=== PATIENT | male | born 1945 | race Caucasian/White ===

== ENCOUNTER → 2016-06-01 | Outpatient (CLI) | payer MEDICARE ==
[~2016-06-01] MED LIST: DIPHENHYDRAMINE 50 MG/ML, 1ML ONE; KETOROLAC 30 MG/1 ML ONE; PROCHLORPERAZINE 5 MG/ML, 2ML ONE
== END | disposition home or self-care (01) ==
LOC: CVU 12:25
PROVIDERS: ATTEND Orthopaedic Surgery
DX: M79.605 Pain in left leg (principal); M54.5 Low back pain; M79.604 Pain in right leg; M25.552 Pain in left hip; M25.551 Pain in right hip; I10 Essential (primary) hypertension; E11.9 Type 2 diabetes mellitus without complications; E78.5 Hyperlipidemia, unspecified; Z87.891 Personal history of nicotine dependence; Z86.79 Personal history of other diseases of the circulatory system; Z95.1 Presence of aortocoronary bypass graft
CPT/HCPCS: 93306; 93922; 93926

== ENCOUNTER → 2016-09-14 | Outpatient (CLI) | payer MEDICARE ==
[~2016-09-14] MED LIST changes: +AMLO5TAB2 PO; +ATEN100T PO; +CELE100C PO; -DIPHENHYDRAMINE 50 MG/ML, 1ML ONE; +FINA5TAB4 PO; +GABA300C10 PO; +HYDR25TA6 PO; -KETOROLAC 30 MG/1 ML ONE; +PRAV40TA2 PO; -PROCHLORPERAZINE 5 MG/ML, 2ML ONE; +TAMS0.4C2 PO; +TRAM50TA2 PO
[2016-09-14 10:22] LABS: BLOOD UREA NITROGEN 8 mg/dL (7-18)
[2016-09-14 10:28] LABS: ASPARTATE AMINO TRANSFERASE 39 U/L (15-37)
== END | disposition home or self-care (01) ==
LOC: STAR 08:47
PROVIDERS: ATTEND Orthopaedic Surgery
DX: Z01.818 Encounter for other preprocedural examination (principal); M48.06 Spinal stenosis, lumbar region
CPT/HCPCS: 36415; 71020; 80053; 81003; 82306; 85025; 85610; 85730; 93005

== ENCOUNTER 2016-09-28 08:27 | Inpatient (IN) | payer MEDICARE ==
[2016-09-14 09:53] VITALS: BP 152/79
[~2016-09-28] VITALS: Ht 180.3 cm; Wt 98.5 kg
[~2016-09-28 08:27] MED LIST changes: +BACITRACIN 50,000 UNIT ONE; +BUPIVACAINE/PF 0.5% ONE; +EPINEPHRINE 1 MG/ML, 1ML ONE; +THROMBIN 5,000 UNIT VIAL TP ONE
[2016-09-28] MEDS ORDERED: CEFAZOLIN PMX 1GM/50ML 50 ML IV ONE (09:30)
[2016-09-28] MEDS ORDERED: FENTANYL PF 100 MCG/2ML ONE ×5 (10:47→13:25)
[2016-09-28] MEDS ORDERED: ONDANSETRON 2MG/ML, 2ML ONE (10:51)
[2016-09-28] MEDS ORDERED: EPHEDRINE 50 MG/ML, 1ML ONE (10:51)
[2016-09-28] MEDS ORDERED: CEFAZOLIN 1,000 MG ONE (10:51)
[2016-09-28] MEDS ORDERED: NEOSTIGMINE 1 MG/ML, 10ML ONE (10:51)
[2016-09-28] MEDS ORDERED: ROCURONIUM 10 MG/ML ONE (10:51)
[2016-09-28] MEDS ORDERED: KETOROLAC 30 MG/1 ML ONE (10:51)
[2016-09-28] MEDS ORDERED: PROPOFOL 10 MG/ML, 20ML ONE (10:51)
[2016-09-28] MEDS ORDERED: DEXAMETHASONE 4 MG/ML, 1ML ONE (10:51)
[2016-09-28] MEDS ORDERED: GLYCOPYRROLATE 0.2MG/1ML ONE (10:51)
[2016-09-28] MEDS ORDERED: LACTATED RINGERS 1,000 ML IV SCH (11:00)
[2016-09-28] MEDS ORDERED: ROPIVACAINE 0.2% EPIDCONT ONE (11:30)
[2016-09-28] MEDS ORDERED: OXYcodone 5 MG/5 ML ORAL.SOL UDC PO PRN (11:30)
[2016-09-28] MEDS ORDERED: PROMETHAZINE 25 MG/ML, 1ML IV PRN (11:30)
[2016-09-28] MEDS ORDERED: MEPERIDINE/PF 25MG/0.5ML IVPush PRN (11:30)
[2016-09-28] MEDS ORDERED: HYDROmorphone 1 MG/ML, 1ML IV PRN (11:30)
[2016-09-28] MEDS ORDERED: ALBUTEROL SULFATE 2.5 MG/3 ML NPPB PRN (11:30)
[2016-09-28] MEDS ORDERED: ACETAMINOPHEN 325 MG TABLET PO PRN (11:30)
[2016-09-28] MEDS ORDERED: hydrALAzine 20 MG/ML, 1ML IV PRN (11:30)
[2016-09-28] MEDS ORDERED: METOPROLOL 1 MG/ML, 5ML IV PRN (11:30)
[2016-09-28] MEDS ORDERED: VANCOMYCIN 1,000 MG IM ONE (11:33)
[2016-09-28] MEDS ORDERED: VANCOMYCIN 1,000 MG ONE (11:40)
[2016-09-28] MEDS ORDERED: ACETAMINOPHEN 650 MG/20.3 ML UDC ONE (12:50)
[2016-09-28] MEDS ORDERED: OXYcodone 5 MG/5 ML ORAL.SOL UDC ONE (12:50)
[2016-09-28] MEDS: FENTANYL PF 100 MCG/2ML IV PRN ×3 (12:56→13:32)
[2016-09-28] MEDS: LABETALOL 5MG/ML, 20ML IV PRN ×2 (13:10→13:28)
[2016-09-28] MEDS ORDERED: PROMETHAZINE 25 MG/ML, 1ML IM PRN (14:30)
[2016-09-28] MEDS ORDERED: BISACODYL 10 MG SUPP PR PRN (14:30)
[2016-09-28] MEDS ORDERED: DIPHENHYDRAMINE 50 MG/ML, 1ML IVPush PRN (14:30)
[2016-09-28] MEDS ORDERED: MAGNESIUM HYDROXIDE 8%, 30ML UDC PO PRN (14:30)
[2016-09-28] MEDS ORDERED: LABETALOL 5MG/ML, 20ML IV PRN (14:30)
[2016-09-28] MEDS ORDERED: ONDANSETRON 2MG/ML, 2ML IV PRN (14:30)
[2016-09-28] MEDS ORDERED: morphine SULFATE 10 MG/ML, 1ML IV PRN (14:30)
[2016-09-28] MEDS ORDERED: HYDROcodone/APAP 5/325 TABLET PO PRN (14:30)
[2016-09-28] MEDS: FAMOTIDINE 20 MG TABLET PO SCH (16:48)
[2016-09-28] MEDS: NS + 20MEQ KCL 1,000 ML IV SCH (16:48)
[2016-09-28] MEDS: TAMSULOSIN 0.4 MG CAP.ER.24H PO SCH (16:49)
[2016-09-28] MEDS: GABAPENTIN 300 MG CAPSULE PO SCH ×2 (16:49→20:59)
[2016-09-28] MEDS: HYDROCHLOROTHIAZIDE 25 MG TABLET PO SCH (16:49)
[2016-09-28] MEDS: ATENOLOL 100 MG TABLET PO SCH (16:49)
[2016-09-28] MEDS: CEFAZOLIN PMX 1GM/50ML 50 ML IVPB SCH (18:22)
[2016-09-28 19:50] VITALS: BP 106/56
[2016-09-28] MEDS: PRAVASTATIN 40 MG TABLET PO SCH (20:59)
[2016-09-28] MEDS: HYDROcodone/APAP 10/325 MG TABLET PO PRN (22:51)
[2016-09-28] MEDS: METHOCARBAMOL 750 MG TABLET PO PRN (22:51)
[2016-09-29 00:05] VITALS: BP 148/65
[2016-09-29] MEDS: NS + 20MEQ KCL 1,000 ML IV SCH (00:30)
[2016-09-29] MEDS: CEFAZOLIN PMX 1GM/50ML 50 ML IVPB SCH (02:35)
[2016-09-29 02:56] VITALS: BP 135/68
[2016-09-29] MEDS: HYDROcodone/APAP 10/325 MG TABLET PO PRN ×2 (04:07→14:37)
[2016-09-29 05:27] LABS: HEMATOCRIT 44.7 % (39.2-51.8); HEMOGLOBIN 15.1 g/dL (13.7-18.0)
[2016-09-29 05:37] LABS: BLOOD UREA NITROGEN 12 mg/dL (7-18)
[2016-09-29 06:17] VITALS: BP 125/66
[2016-09-29] MEDS: FAMOTIDINE 20 MG TABLET PO SCH ×2 (06:18→17:06)
[2016-09-29] MEDS: ATENOLOL 100 MG TABLET PO SCH (06:18)
[2016-09-29 07:45] VITALS: BP 127/64
[2016-09-29] MEDS ORDERED: HYDR-3240 PO (07:50)
[2016-09-29] MEDS ORDERED: METH750T2 PO (07:50)
[2016-09-29] MEDS: TAMSULOSIN 0.4 MG CAP.ER.24H PO SCH (09:54)
[2016-09-29] MEDS: HYDROCHLOROTHIAZIDE 25 MG TABLET PO SCH (09:54)
[2016-09-29] MEDS: AMLODIPINE 5 MG TABLET PO SCH (09:55)
[2016-09-29] MEDS: SENNA/DOCUSATE TABLET PO SCH (09:55)
[2016-09-29] MEDS: GABAPENTIN 300 MG CAPSULE PO SCH ×3 (09:55→20:55)
[2016-09-29] MEDS: CEPHALEXIN 500 MG CAPSULE PO SCH ×3 (11:33→20:54)
[2016-09-29 16:06] VITALS: BP 118/67
[2016-09-29 20:40] VITALS: BP 114/60
[2016-09-29] MEDS: METHOCARBAMOL 750 MG TABLET PO PRN (20:55)
[2016-09-29] MEDS: PRAVASTATIN 40 MG TABLET PO SCH (20:55)
[2016-09-30] MEDS: HYDROcodone/APAP 10/325 MG TABLET PO PRN ×2 (01:48→06:33)
[2016-09-30 01:51] VITALS: BP 135/73
[2016-09-30 04:48] LABS: HEMATOCRIT 38.6 % (39.2-51.8); HEMOGLOBIN 13.1 g/dL (13.7-18.0); WHITE BLOOD COUNT 10.9 x10^3/uL (3.4-10)
[2016-09-30 04:49] LABS: BLOOD UREA NITROGEN 11 mg/dL (7-18)
[2016-09-30] MEDS: FAMOTIDINE 20 MG TABLET PO SCH (06:32)
[2016-09-30] MEDS: ATENOLOL 100 MG TABLET PO SCH (06:33)
[2016-09-30] MEDS: CEPHALEXIN 500 MG CAPSULE PO SCH ×2 (06:33→11:43)
[2016-09-30] MEDS: METHOCARBAMOL 750 MG TABLET PO PRN (06:33)
[2016-09-30 06:46] VITALS: BP 152/80
[2016-09-30] MEDS: HYDROCHLOROTHIAZIDE 25 MG TABLET PO SCH (10:07)
[2016-09-30] MEDS: TAMSULOSIN 0.4 MG CAP.ER.24H PO SCH (10:07)
[2016-09-30] MEDS: GABAPENTIN 300 MG CAPSULE PO SCH (10:08)
[2016-09-30] MEDS: SENNA/DOCUSATE TABLET PO SCH (10:08)
[2016-09-30] MEDS: AMLODIPINE 5 MG TABLET PO SCH (10:08)
[2016-09-30 11:39] VITALS: BP 138/68
[2016-09-30] MEDS ORDERED: CEPH-368 PO (12:28)
[2016-09-30] MEDS ORDERED: TRAM50TA2 PO (12:29)
== END 2016-09-30 12:53 | disposition home or self-care (01) | DRG 516 ==
LOC: OUT 08:27 → 4NOR 14:17 → OUT 14:18 → 4NOR 14:18 → DCLOUNGE 09-30 12:20
PROVIDERS: ADMIT Orthopaedic Surgery; ATTEND Orthopaedic Surgery
PROC: 01NR0ZZ Release Sacral Nerve, Open Approach (ICD-10-PCS; 2016-09-28)
PROC: 01NB0ZZ Release Lumbar Nerve, Open Approach (ICD-10-PCS; principal; 2016-09-28 10:30)
DX: M48.06 Spinal stenosis, lumbar region (principal); E87.1 Hypo-osmolality and hyponatremia; E11.40 Type 2 diabetes mellitus with diabetic neuropathy, unspecified; E11.51 Type 2 diabetes mellitus with diabetic peripheral angiopathy without gangrene; I73.9 Peripheral vascular disease, unspecified; I10 Essential (primary) hypertension; M48.07 Spinal stenosis, lumbosacral region; I25.10 Atherosclerotic heart disease of native coronary artery without angina pectoris; E78.00 Pure hypercholesterolemia, unspecified; M19.90 Unspecified osteoarthritis, unspecified site; Z95.1 Presence of aortocoronary bypass graft; Z82.61 Family history of arthritis; Z80.9 Family history of malignant neoplasm, unspecified; Z82.49 Family history of ischemic heart disease and other diseases of the circulatory system
CPT/HCPCS: 36415; 72100; 80048; 81003; 85025; J0171; J0690; J1100; J1885; J2270; J2405; J2704; J2710; J3010; J3370; J3480; J3490; J0360